=== PATIENT | female | born 1950 | race Caucasian/White ===

== ENCOUNTER 2016-11-01 13:21 | Inpatient (IN) ==
[2016-11-01 14:08] LABS: Basophils # (Auto) 0.1 K/mcL (0.0-0.3); Basophils % (Auto) 0.7 % (0.0-2.0); Eosinophils # (Auto) 0.2 K/mcL (0.0-0.7); Eosinophils % (Auto) 1.5 % (0.0-7.0); Granulocytes % (Auto) 77.5 % (38.0-78.0); Lymphocytes # (Auto) 2.1 K/mcL (1.5-4.8); Mean Cell Volume 92.8 fL (80.0-100.0); Mean Corpuscular HGB Conc 32.9 g/dL (31.0-36.0); Mean Corpuscular Hemoglobin 30.6 pg (26.0-34.0); Monocytes # (Auto) 1.2 K/mcL (0.1-0.9); Monocytes % (Auto) 7.3 % (1.0-12.0); Platelet Count 371 K/mcL (140-440); RBC 4.07 M/mcL (4.00-5.20); Red Cell Distribution Width 13.4 % (11.5-14.5)
[2016-11-01 14:22] LABS: Appearance,Urine CLEAR; Bilirubin,Urine NEG (NEG); Color,Urine YELLOW; Glucose,Urine (UA) NEGATIVE (NEG); Leukocyte Esterase,Urine NEG /uL (NEG); Nitrate,Urine NEG (NEG); Protein,Urine NEG (NEG); Urine Blood NEG mg/dL (<0.03); Urobilinogen,Urine NEG (NEG)
[2016-11-01] MEDS ORDERED: HYDROmorphone 2 MG/ML SYRINGE IV PRN ×2 (16:20→18:17)
[2016-11-01 17:23] LABS: ALT/SGPT 12 U/l (0-40); Albumin/Globulin Ratio 1.3 (1.0-2.3); Alkaline Phosphatase 87 U/L (39-117); Blood Urea Nitrogen 14 mg/dl (8-23)
[2016-11-01] MEDS ORDERED: DEXAMETHASONE 10 MG/ML VIAL IV ONE (17:40)
[2016-11-01] MEDS ORDERED: LIDOCAINE HCL/PF 100 MG/5 ML SYRINGE IV ONE (17:40)
[2016-11-01] MEDS ORDERED: fentaNYL 100 MCG/2 ML VIAL IV ONE (17:40)
[2016-11-01] MEDS ORDERED: PROPOFOL 200 MG/20 ML VIAL IV ONE (17:40)
[2016-11-01] MEDS ORDERED: MIDAZOLAM 5 MG/5 ML VIAL IV ONE (17:40)
[2016-11-01] MEDS ORDERED: ONDANSETRON 4 MG/2 ML VIAL IV ONE (17:40)
[2016-11-01] MEDS ORDERED: METOPROLOL TARTRATE 5 MG/5 ML VIAL IV PRN (18:17)
[2016-11-01] MEDS ORDERED: fentaNYL 100 MCG/2 ML VIAL IV PRN (18:17)
[2016-11-01] MEDS ORDERED: FLUMAZENIL 0.1 MG/ML ML IV PRN (18:17)
[2016-11-01] MEDS ORDERED: ePHEDrine 50 MG/ML AMPUL IV PRN (18:17)
[2016-11-01] MEDS ORDERED: METHOCARBAMOL 1,000 MG/10 ML VIAL IV PRN (18:17)
[2016-11-01] MEDS ORDERED: NALOXONE HCL 0.4 MG/ML VIAL IV PRN (18:17)
[2016-11-01] MEDS ORDERED: ATROPINE SULFATE 0.4 MG/ML VIAL IV PRN (18:17)
[2016-11-01] MEDS ORDERED: BENZOCAINE/MENTHOL 1 LOZENGE PO PRN ×2 (18:17→19:00)
[2016-11-01] MEDS ORDERED: MEPERIDINE 25 MG/ML SYRINGE IV PRN (18:17)
[2016-11-01] MEDS ORDERED: diphenhydrAMINE 50 MG/ML VIAL IV PRN (18:17)
[2016-11-01] MEDS ORDERED: ONDANSETRON 4 MG/2 ML VIAL IV PRN ×2 (18:17→19:00)
[2016-11-01] MEDS ORDERED: IPRATROPIUM/ALBUTEROL 3 ML AMPUL.NEB NEB PRN (18:17)
[2016-11-01] MEDS ORDERED: LACTATED RINGERS 1,000 ML IV SCH (18:30)
[2016-11-01] MEDS ORDERED: HYDROCODONE/APAP 7.5/325MG TABLET PO PRN (19:00)
[2016-11-01] MEDS ORDERED: LIDOCAINE 1% 20 ML, BUPIVACAINE 0.5% 20 ML SQ ONE (19:09)
--- NOTE | 2016-11-01 19:09 | Brief Operative Note ---
Date of procedure: 11/01/16 Pre-op diagnosis: Right bergman thumb abcess and thumb suppurative flexor tenosynovitis Post-op diagnosis: same Procedure: 1. Debridement and irrigation of right thumb bergman abcess 2. Debridement and irrigation of a right septic thumb, hand and suppurative flexor tenosynovitis Grafts/Implants: No Anesthesia: GLMA Findings: See above Complications: none Surgeon: Carl Resendez Product Safety Tester: Breana Angulo Estimated blood loss (cc): 5 Tourniquet Time (Minutes): 35 Specimens Removed/Pathology: other (Aerobic/Anaerobic/Fungal cultures of right thumb bergman abcess and flexor sheath) Condition: stable Disposition: PACU
[2016-11-01] MEDS ORDERED: VANCOMYCIN PER PHARMACY IV ONE (19:47)
[2016-11-01] MEDS ORDERED: cefTRIAXone 2 GM VIAL ONE (20:12)
[2016-11-01] MEDS: HYDROmorphone 2 MG/ML SYRINGE IV PRN (20:23)
[2016-11-01] MEDS: cefTRIAXone 2 GM in DEXTROSE 5% IN WATER 50 ML IV SCH ×2 (20:24)
[2016-11-01] MEDS ORDERED: METHOCARBAMOL 500 MG TABLET PO PRN (21:09)
[2016-11-01] MEDS: ATORVASTATIN 20 MG TABLET PO SCH (21:45)
[2016-11-01] MEDS: ZOLPIDEM 5 MG TABLET PO SCH (21:45)
[2016-11-01] MEDS: AMITRIPTYLINE 25 MG TABLET PO SCH (21:45)
[2016-11-01] MEDS: GABAPENTIN 300 MG CAPSULE PO SCH (21:45)
[2016-11-01] MEDS: 0.9 % SODIUM CHLORIDE 10 ML SYRINGE IV SCH (22:30)
[2016-11-01] MEDS ORDERED: VANCOMYCIN 500 MG VIAL ONE (23:55)
[2016-11-02] MEDS: VANCOMYCIN 1,000 MG in 0.9 % SODIUM CHLORIDE 250 ML IV SCH ×3 (00:10→21:52)
[2016-11-02 05:34] LABS: Mean Corpuscular Hemoglobin 30.7 pg (26.0-34.0); Platelet Count 309 K/mcL (140-440); RBC 3.88 M/mcL (4.00-5.20); Red Cell Distribution Width 13.5 % (11.5-14.5)
[2016-11-02 06:27] LABS: ALT/SGPT 13 U/l (0-40); Albumin 3.7 gm/dL (3.2-5.2); Albumin/Globulin Ratio 1.2 (1.0-2.3); Alkaline Phosphatase 85 U/L (39-117); Bilirubin,Direct < 0.2 mg/dL (0.0-0.3); Blood Urea Nitrogen 14 mg/dl (8-23); C-Reactive Protein 13.8 mg/dl (0.0-0.8); Gamma Glutamyl Transpeptidase 25 U/L (5-36); Magnesium 2.3 mg/dL (1.6-2.5); Uric Acid 3.7 mg/dL (2.5-8.0)
[2016-11-02 07:18] LABS: Lymphocytes % 7 % (15-49); Monocytes % (Manual) 4 % (1-9); Platelet Estimate NORMAL (NORMAL); RBC Morphology NORMAL (NORMAL); Segmented Neutrophils % 89 % (38-78)
[2016-11-02] MEDS: metFORMIN 500 MG TAB.XL.24H PO SCH (07:21)
[2016-11-02] MEDS: LEVOTHYROXINE 125 MCG TABLET PO SCH (07:22)
[2016-11-02] MEDS: 0.9 % SODIUM CHLORIDE 10 ML SYRINGE IV SCH ×3 (07:22→21:54)
--- NOTE | 2016-11-02 07:44 | Operative Note ---
DATE OF OPERATION: 11/01/2016 PREOPERATIVE DIAGNOSES: 1. Right thumb and hand palmar abscess. 2. Right thumb suppurative flexor tenosynovitis. POSTOPERATIVE DIAGNOSES: 1. Right thumb and hand palmar abscess. 2. Right thumb suppurative flexor tenosynovitis. PROCEDURE: 1. Debridement and irrigation of a right hand and thumb palmar abscess and septic tissues. 2. Debridement and irrigation of a right thumb with flexor tendon sheath. SURGEON: Carl Resendez MD. MOTOR VEHICLE DISPATCHER: Breana Angulo RN ESTIMATED BLOOD LOSS: 5 mL DRAINS: Included 1/4-inch [place] drain placed deep to the flexor sheath. COMPLICATIONS: None. FINAL SPONGE COUNT: Correct. TOTAL TOURNIQUET TIME: 35 minutes. SPECIMENS: Aerobic, anaerobic, fungal cultures of the right thumb palmar abscess and flexor tendon sheath. INDICATION: The patient is a 66-year-old, [id number], white female who about 10 days ago underwent a right thumb A1 aime release with subsequent increasing pain, swelling, loss of motion and function with pain radiating up her arm and with some low-grade temperatures. Her physical examination demonstrates a 0.5 cm transverse incision at the base of the palmar thumb at the metacarpophalangeal joint flexion crease. The sutured had been removed. There was erythema, induration significant tenderness to palpation and extended tenderness over the dorsum of the hand and down to the thenar musculature to the wrist with significant tenderness with attempted flexion and extension either passively and actively of the thumb. She had laboratory studies with a white cell count of 59,000, and an ESR of 45. The patient and family verbalized that they understood the proposed procedure with the associated risks and benefits and consented. PROCEDURE: The patient was taken to the operating room suite, placed supine on the operating table. General anesthesia was attained with laryngeal mask. After adequate anesthesia verified, a tourniquet was placed on the proximal aspect of her right arm and the right upper extremity was then sterilely prepped and draped in the usual fashion. The incision site was identified. This was then opened with the curved tenotomies with gross purulence expressed from the palmar abscess. Aerobic and anaerobic cultures, aerobic, and fungal cultures were taken at this time. Next, this was then irrigated slightly down to the flexor sheath. There was seen and purulence joint proximally in the flexor sheath and deep dorsally to the dorsum of the hand through the palmar space. Next, the flexor tendon sheath was drained and aerobic, anaerobic and fungal cultures were taken of the flexor tendon sheath as well. The incision site was then extended proximally and distally in a Jimy fashion about 200 cm each. After this demonstrated to be in good position, the right upper extremity was exsanguinated and tourniquet was inflated to 280 mmHg. The incision was then extended proximally and distally in a Jimy fashion. Sharp wrist and in the skin and subcutaneous tissues. Subcutaneous tissues were bluntly divided. Full-thickness flaps were developed in a radial ulnar direction. The entire flexor sheath was identified. There was necrotic and/or purulent material extending down palmarly and into the dorsal space through the palmar space. Next, copious irrigation was taken through the wound with a liter of sterile saline solution, repeat debridement was taken through the flexor sheath. The neurovascular bundles were identified and meticulously dissected free of the soft tissues and protected removing all necrotic tissue. All necrotic tissue was removed from the more palmar and proximal flexor sheath as well as distally. Blunt dissection taken down. Any spaces were opened and debrided. The palmar space was then opened and dorsum of the hand was debrided as well. After this was completed, another irrigation of a liter of sterile saline solution, repeat debridement, another liter of sterile saline solution and a final debridement removing all necrotic and/or foreign material and any purulence noted. The tendon was intact. There was no evidence of purulence within the flexor sheath or the palmar aspect or dorsal aspect of the hand. After final irrigation, the incisions edges were trimmed back about 2 mm and the skin was then closed with a 4-0 nylon in interrupted sutures and 1/4-inch [place] drains placed deep to the flexor sheath. The tourniquet was released. The thumb was seen to pink up very nicely with good drainage from the drain site. A bulky thumb spica dressing was applied. A thumb spica splint was applied. The patient was awakened and [facility] and to recovery room in a stable condition. The patient tolerated the procedure well. The estimated blood loss was 5 mL. Drains included 1/4-inch [place] drain placed deep to the flexor sheath. Complications were none. Final sponge count was correct. Specimens included aerobic, anaerobic and fungal cultures at the palmar abscess and the flexor sheath. Total tourniquet time of 35 minutes. SRB:yan Job ID: [id number] Doc ID: [id number] Carl Resendez MD
[2016-11-02] MEDS ORDERED: NAPROXEN 250 MG TABLET PO PRN (08:00)
[2016-11-02] MEDS: cefTRIAXone 2 GM in DEXTROSE 5% IN WATER 50 ML IV SCH (09:17)
[2016-11-02] MEDS: GABAPENTIN 300 MG CAPSULE PO SCH ×2 (09:50→21:01)
[2016-11-02] MEDS ORDERED: sitaGLIPtin 100 MG TABLET PO ONE (10:24)
[2016-11-02] MEDS ORDERED: DEXTROSE 50% 50 ML VIAL IV PRN (10:25)
--- NOTE | 2016-11-02 10:32 | Internal Med Progress Note ---
Medical - PN: Subj Patient information: Note initiated : 11/02/16 at 10:27 am Service Date, if different from initiated Date: [] Patient: Jada Ramirez 66 y/o F admitted on 11/01/16 for Debridement and Irrigation of Right Thumb Palmar . Chief Complaint: [] Interval history: 11/01- patient admitted by orthopedics with right hand/thumb abscess/ tenosynovitis. Postop debridement. Hospitalist consult for management of antibiotics and medical issues. Patient started onvancomycin/Rocephin. 11/02-patient doing well. Continue antibiotic coverage. Gram stain cultures negative so far. Pre-existing medical condition stable on home meds. No overnight fever chills or concerns per staff - Constitutional Vitals: Vital Signs Temp Pulse Resp BP Pulse Ox 97.4 F L 56 L 12 98/61 96 11/02/16 07:39 11/02/16 08:00 11/02/16 07:39 11/02/16 07:39 11/02/16 08:00 Period Temp Pulse Resp BP Sys/Wang Pulse Ox Last 24 Hr 97.4 F-99.7 F 56-95 12-18 98-154/61-89 90-100 Intake and Output 11/01/16 11/02/16 11/02/16 21:59 05:59 13:59 Intake Total 1600 / 1600 350 / 350 500 / 500 Output Total 5 / 5 650 / 650 Balance 1595 / 1595 -300 / -300 500 / 500 Weight 201 lb Intake & Output: Intake & Output 11/01/16 11/02/16 11/02/16 21:59 05:59 13:59 Intake Total 1600 / 1600 350 / 350 500 / 500 Output Total 5 / 5 650 / 650 Balance 1595 / 1595 -300 / -300 500 / 500 Weight 201 lb Intake: IV 1600 / 1600 Oral 350 / 350 500 / 500 Output: Void Amount 650 / 650 Estimated Blood Loss 5 / 5 Other: Meal Breakfast Percent of Meal Consumed 100% Feeding Ability Independent # Voids 1 General appearance: cooperative, no acute distress Exam: alert oriented onlabored breathing Right hand/armCovered in dressing no anxiety Medical - PN: Obj Da - Labs CBC & Chem 7: 11/02/16 04:00 11/02/16 04:00 Labs: Abnormal Lab Results 11/02/16 11/02/16 11/01/16 04:00 04:00 16:05 WBC 14.4 H RBC 3.88 L Hgb 11.9 L Lymph % (Auto) Gran # [place] # Seg Neutrophils % 89 H Lymphocytes % 7 L ESR Potassium 5.2 H Glucose 159 H C-Reactive Protein 13.8 H 10.6 H Urine Ketones 11/01/16 11/01/16 11/01/16 16:05 16:05 13:45 WBC 15.9 H RBC Hgb Lymph % (Auto) 13.0 L Gran # 12.3 H [place] # 1.2 H Seg Neutrophils % Lymphocytes % ESR 45 H Potassium Glucose 109 H C-Reactive Protein Urine Ketones 11/01/16 13:40 WBC RBC Hgb Lymph % (Auto) Gran # [place] # Seg Neutrophils % Lymphocytes % ESR Potassium Glucose C-Reactive Protein Urine Ketones 5/tr A Meds: Medications Acetaminophen/Hydrocodone Bitart ([place] 7.5/325mg) 0 tab PO Q4HP PRN PRN Reason: Pain Last Admin: 11/01/16 20:28 Dose: 1 tab Amitriptyline HCl (Elavil) 50 mg PO HS [facility] Last Admin: 11/01/16 21:45 Dose: 50 mg Atorvastatin Calcium (Lipitor) 40 mg PO HS [facility] Last Admin: 11/01/16 21:45 Dose: 40 mg Dextrose (Dextrose 50%) 0 ml IV UD PRN PRN Reason: Hypoglycemia Diagnostic Test (Pha) (Accu-Chek) 1 each FS ACHS TERE Gabapentin (Neurontin) 300 mg PO HS [facility] Last Admin: 11/01/16 21:45 Dose: 300 mg Gabapentin (Neurontin) 600 mg PO QAM [facility] Last Admin: 11/02/16 09:50 Dose: 600 mg Hydromorphone HCl (Dilaudid) 0 mg IV Q2HP PRN PRN Reason: Pain Last Admin: 11/01/16 20:23 Dose: 1 mg Ceftriaxone Sodium 2 gm/ (Dextrose) 50 mls @ 100 mls/hr IV Q24H [facility] Last Admin: 11/02/16 09:17 Dose: 100 mls/hr Vancomycin HCl 1,000 mg/ (Sodium Chloride) 250 mls @ 250 mls/hr IV Q12H [facility] Last Admin: 11/02/16 09:51 Dose: 250 mls/hr Insulin Human Lispro (Humalog) 0 unit SQ ACHS [facility] PRN Reason: Protocol Levothyroxine Sodium (Synthroid) 125 mcg PO QAMAC [facility] Last Admin: 11/02/16 07:22 Dose: 125 mcg Metformin HCl (Glucophage) 500 mg PO QAMCC [facility] Last Admin: 11/02/16 07:21 Dose: 500 mg Methocarbamol (Robaxin) 500 mg PO BIDP PRN PRN Reason: Pain Naproxen (Naprosyn) 500 mg PO BIDP PRN PRN Reason: Pain Ondansetron HCl (Zofran) 4 mg IV Q4HP PRN PRN Reason: Nausea And Vomiting Sitagliptin Phosphate (Januvia) 100 mg PO DAILY [facility] Sodium Chloride (Saline Flush) 10 ml IV Q8 [facility] Last Admin: 11/02/16 07:22 Dose: 10 ml Throat Lozenges (Cepacol) 1 lozenge PO PRN PRN PRN Reason: Sore Throat Zolpidem Tartrate (Ambien) 5 mg PO HS [facility] Last Admin: 11/01/16 21:45 Dose: 5 mg Medical - PN: A/P - Time Spent With Patient Total time spent is greater than 50% in coordination of care (as documented) at patient's floor/unit and/or counseling patient: 15 - 24 minutes (1) Abscess of right hand excluding fingers and thumb Status: Acute Assessment and plan: * right hand abscess/tenosynovitis, status post operative debridement. On broad antibiotic coverage. Await cultures.. Postoperative care per orthopedics Hospitalist consult * cellulitis/tenosynovitis right hand-continue vancomycin and Rocephin for empiric MRSA/Streptococcus/ gram-negative coverage. * DM type continue prandial insulin/sitagliptin * Neuropathy on gabapentin/amitriptyline * Hypothyroidism thyroxine * hyperlipidemia statin * DVT prophylaxis. Start Lovenox Plan * postoperative management as per Dr. Santana orthopedics * Antibiotic coverage. De-escalate based on sensitivities * Pre-existing medical condition management as above Current Visit: Yes
[2016-11-02] MEDS ORDERED: LORazepam 2 MG/ML VIAL IV ONE (10:45)
[2016-11-02] MEDS ORDERED: LORazepam 2 MG/ML VIAL ONE (10:49)
[2016-11-02] MEDS: INSULIN LISPRO 1 UNIT/0.01 ML UNIT SQ SCH ×3 (10:57→21:53)
--- NOTE | 2016-11-02 11:30 | Consultation ---
DATE OF CONSULTATION: 11/02/2016 REQUESTING PHYSICIAN: Carl Resendez MD. REASON FOR CONSULTATION: Management of antibiotics in a patient with right thumb and hand palmar abscess/tenosynovitis. HISTORY OF CHIEF COMPLAINT: The patient is a 66-year-old who was evaluated by Dr. Resendez after she had noticed significant swelling, along with pain and discharge involving the right thumb and hand. She recently underwent outpatient trigger finger release at [facility]. However, the healing process was complicated with increasing redness and discharge along with fever. The patient underwent debridement and irrigation of right hand and thumb palmar abscess and septic tissues performed by Dr. Resendez. Postoperatively, Hospitalist Service was consulted for management of antibiotics. Cultures are pending. At the time of examination, the patient is postoperative. She is alert and oriented. She denies any active distress. She denies other major prior medical issues. No history of coronary artery disease. She carries a history of diabetes, takes metformin. She also has underlying neuropathy which has been stable on gabapentin, along with amitriptyline. She has some insomnia for which she normally takes zolpidem. Other than that, the patient has been fairly healthy. She currently works for the [employer]. REVIEW OF SYSTEMS: Ten-point review of system was performed. The patient denies nausea, vomiting, diarrhea, dysuria, headache, photophobia, chest pain, shortness of breath. She further denies abdominal pain, rash, joint swelling, lymphedema. She also denies glandular swelling or weight loss. PAST MEDICAL HISTORY: 1. History of diabetes mellitus type 2. 2. Degenerative joint disease. 3. Neuropathy. 4. Hyperlipidemia. 5. Hypothyroidism. 6. History of sleep disorder. CURRENT MEDICATIONS: 1. Amitriptyline 50 mg at bedtime, 2. Zolpidem 5 mg at bedtime. 3. Methocarbamol 500 mg b.i.d. 4. Levothyroxine 125 mcg. 5. Atorvastatin 40 mg. 6. Metformin 500 mg. 7. Gabapentin 300 mg at bedtime, 600 mg every morning. 8. Naproxen 500 mg t.i.d. p.r.n. SOCIAL HISTORY: [place] She lives alone, fairly independent. No history of smoking or alcoholism. She sees primary care physician, MICHAEL Sarah. PHYSICAL EXAMINATION: GENERAL: The patient is alert and oriented and denies any active distress. BMI 28.8, height 5 feet 10 inches. VITAL SIGNS: Blood pressure 138/89, respiratory rate 12, temperature 98.3, pulse 86, sats 92% on room air. HEENT: Pupils symmetric. Oral cavity is dry. No ear or nose discharge. Head is normocephalic and atraumatic. NECK: No lymphadenopathy. CHEST: Nonlabored breathing. ABDOMEN: Soft. EXTREMITIES: Right upper extremity covered in sterile dressing. Lower extremities no cyanosis or clubbing. No joint swelling. SKIN: No suspicious lesions. PSYCHIATRIC: Alert and cooperative. NEURO: Nonfocal, moving all four extremities. Normal higher function. LABS AND IMAGING: White count 15.9, hemoglobin 13.8, platelets 371. ESR 45. Sodium 135, potassium 4.2, creatinine 0.7, BUN 14. LFTs unremarkable. CRP 10.6. UA unremarkable. EKG: Q3/T3 pattern suggestive of right ventricular strain. Borderline ST changes V3, V4, V5. Sinus rhythm. ASSESSMENT AND PLAN: A 66-year-old admitted by Orthopedics for right hand abscess/septic arthritis/tenosynovitis. 1. Right hand/thumb abscess/tenosynovitis/septic arthritis. Status post irrigation and debridement by Orthopedics. Hospitalist consult. 2. Management of antibiotics. Start empiric Rocephin/vancomycin and deescalate based on culture sensitivities. 3. History of diabetes mellitus type 2. Continue prandial insulin/sitagliptin. 4. History of hyperlipidemia. Continue statin. 5. Neuropathy. Continue gabapentin/amitriptyline 6. Hypothyroidism. Continue levothyroxine. PLAN: 1. Postoperative management as per Orthopedics. 2. Medical issue management as above. We will continue to follow along. Thank you for the consultation. AA:flora Job ID: [id number] Doc ID: [id number] Elan YOO
[2016-11-02] MEDS ORDERED: 0.9 % SODIUM CHLORIDE 10 ML SYRINGE IV PRN (16:25)
--- NOTE | 2016-11-02 16:46 | Orthopedic Progress Note ---
Subjective Patient information: Note initiated : 11/02/16 at 4:44 pm Service Date, if different from initiated Date: [] Patient: Jada Ramirez 66 y/o F admitted on 11/01/16 for Debridement and Irrigation of Right Thumb Palmar . Chief Complaint: [] Principal diagnosis: Right thumb abcess, right thumb suppurative flexor tenosynovitis Interval history: Patient doing better, decreased pain, no fevers or chills, taking po well Objective Vital signs: Vital Signs Temp Pulse Pulse Resp BP Pulse Ox 11/02/16 16:00 97.5 F L 87 12 101/68 98 11/02/16 12:00 97.4 F L 60 12 100/63 95 11/02/16 08:00 56 L 96 11/02/16 07:39 97.4 F L 57 L 12 98/61 100 11/02/16 07:26 14 11/02/16 04:00 97.4 F L 70 12 108/69 96 11/02/16 00:00 98.3 F 86 12 103/63 92 11/01/16 21:17 87 138/89 93 11/01/16 21:03 87 134/84 97 11/01/16 20:48 83 141/78 96 11/01/16 20:33 84 133/73 90 11/01/16 20:18 98.0 F 76 12 145/83 94 11/01/16 19:15 98.6 F 92 H 14 134/73 97 11/01/16 19:10 91 H 16 138/79 95 11/01/16 19:05 92 H 12 138/78 97 11/01/16 19:00 90 12 135/79 98 11/01/16 18:55 95 H 18 135/75 99 11/01/16 18:50 99.7 F H 86 16 154/87 97 Intake and Output 11/02/16 11/02/16 11/02/16 05:59 13:59 21:59 Intake Total 350 / 350 700 / 700 Output Total 650 / 650 Balance -300 / -300 700 / 700 Intake: Oral 350 / 350 700 / 700 Output: Void Amount 650 / 650 Other: Meal Lunch Percent of Meal Consumed 100% Feeding Ability Independent # Voids 1 Weight 201 lb Patient Weight 11/03/16 05:59 Weight 201 lb Intake & Output: Intake & Output 11/02/16 11/02/16 11/02/16 05:59 13:59 21:59 Intake Total 350 / 350 700 / 700 Output Total 650 / 650 Balance -300 / -300 700 / 700 Weight 201 lb Intake: Oral 350 / 350 700 / 700 Output: Void Amount 650 / 650 Other: Meal Lunch Percent of Meal Consumed 100% Feeding Ability Independent # Voids 1 Dressing: Yes clean, Yes dry, Yes intact, Yes splint in place Weight bearing status: full Neurological exam IM: Yes alert, Yes oriented X3, Yes neurovascular intact - Labs CBC & BMP: 11/02/16 04:00 11/02/16 04:00 Labs: 11/02/16 11/01/16 04:00 13:45 Hgb 11.9 L 12.4 Hct 36.1 37.8 Assessment and Plan (1) Tenosynovitis Status: Acute Priority: Medium Comment: A: S/P debridement and irrigation of right septic hand with debridement and irrigation of right thumb suppurative flexor tenosynovitis P: 1. Continue IV antibiotics as per Hospitalist 2. Up as tolerated 3. Dressing change and drain D/C 11/04/16
[2016-11-02] MEDS ORDERED: LORazepam 2 MG/ML VIAL IV PRN (18:07)
[2016-11-02] MEDS: ATORVASTATIN 20 MG TABLET PO SCH (21:01)
[2016-11-02] MEDS: AMITRIPTYLINE 25 MG TABLET PO SCH (21:02)
[2016-11-02] MEDS: ZOLPIDEM 5 MG TABLET PO SCH (21:02)
[2016-11-02] MEDS: HYDROmorphone 2 MG/ML SYRINGE IV PRN (21:52)
[2016-11-03 05:18] LABS: Mean Cell Volume 93.6 fL (80.0-100.0); Mean Corpuscular HGB Conc 34.2 g/dL (31.0-36.0); Platelet Count 316 K/mcL (140-440); RBC 3.41 M/mcL (4.00-5.20); Red Cell Distribution Width 13.5 % (11.5-14.5)
[2016-11-03 05:42] LABS: ALT/SGPT 20 U/l (0-40); Albumin 3.6 gm/dL (3.2-5.2); Albumin/Globulin Ratio 1.3 (1.0-2.3); Alkaline Phosphatase 83 U/L (39-117); Bilirubin,Direct < 0.2 mg/dL (0.0-0.3); Blood Urea Nitrogen 17 mg/dl (8-23); Gamma Glutamyl Transpeptidase 33 U/L (5-36); Magnesium 2.2 mg/dL (1.6-2.5); Uric Acid 4.2 mg/dL (2.5-8.0)
[2016-11-03] MEDS: 0.9 % SODIUM CHLORIDE 10 ML SYRINGE IV SCH ×3 (06:43→22:00)
[2016-11-03] MEDS: INSULIN LISPRO 1 UNIT/0.01 ML UNIT SQ SCH ×4 (06:43→21:04)
[2016-11-03] MEDS: LEVOTHYROXINE 125 MCG TABLET PO SCH (06:46)
[2016-11-03] MEDS: metFORMIN 500 MG TAB.XL.24H PO SCH (06:46)
[2016-11-03 06:54] LABS: Band Neutrophils % 1 % (0-10); Lymphocytes % 20 % (15-49); Monocytes % (Manual) 5 % (1-9); Platelet Estimate NORMAL (NORMAL); RBC Morphology NORMAL (NORMAL); Segmented Neutrophils % 74 % (38-78)
[2016-11-03] MEDS: ENOXAPARIN 40 MG/0.4 ML SYRINGE SQ SCH (08:38)
[2016-11-03] MEDS: GABAPENTIN 300 MG CAPSULE PO SCH ×2 (08:38→20:59)
[2016-11-03] MEDS: sitaGLIPtin 100 MG TABLET PO SCH (08:38)
[2016-11-03] MEDS: cefTRIAXone 2 GM in DEXTROSE 5% IN WATER 50 ML IV SCH (09:37)
[2016-11-03] MEDS: oxyCODONE/APAP 5/325MG TABLET PO PRN ×3 (09:48→19:33)
--- NOTE | 2016-11-03 10:39 | Internal Med Progress Note ---
Medical - PN: Subj Patient information: Note initiated : 11/03/16 at 10:35 am Service Date, if different from initiated Date: [] Patient: Jada Ramirez 66 y/o F admitted on 11/01/16 for Debridement and Irrigation of Right Thumb Palmar . Chief Complaint: [] Interval history: 11/01- patient admitted by orthopedics with right hand/thumb abscess/ tenosynovitis. Postop debridement. Hospitalist consult for management of antibiotics and medical issues. Patient started onvancomycin/Rocephin. 11/02-patient doing well. Continue antibiotic coverage. Gram stain cultures negative so far. Pre-existing medical condition stable on home meds. No overnight fever chills or concerns per staff 11/03- gram-positive cocci in chains along withgram-positive coccobacillary on Gram stain. Continue vancomycin and Rocephin. Await final sensitivities. Target 4 weeks IV followed by additional 2 weeks oral antibiotics. PICC line placement today for outpatient IV antibiotics. postoperative management per Dr. Morales orthopedics - Constitutional Vitals: Vital Signs Temp Pulse Resp BP Pulse Ox 98.3 F 63 18 103/69 95 11/03/16 06:41 11/03/16 06:41 11/03/16 06:48 11/03/16 06:41 11/03/16 06:48 Period Temp Pulse Resp BP Sys/Wang Pulse Ox Last 24 Hr 97.4 F-99.4 F 60-87 12-22 100-124/63-72 93-98 Intake and Output 11/02/16 11/03/16 11/03/16 21:59 05:59 13:59 Intake Total 750 / 750 900 / 900 600 / 600 Output Total 50 / 50 900 / 900 Balance 700 / 700 0 / 0 600 / 600 Weight 201 lb 8 oz Intake & Output: Intake & Output 11/02/16 11/03/16 11/03/16 21:59 05:59 13:59 Intake Total 750 / 750 900 / 900 600 / 600 Output Total 50 / 50 900 / 900 Balance 700 / 700 0 / 0 600 / 600 Weight 201 lb 8 oz Intake: IV 250 / 250 Vancomycin 1,000 mg In 250 / 250 Sodium Chloride 0.9% 250 ml @ 250 mls/hr IV Q12H [facility] Rx#:[id number] Oral 750 / 750 650 / 650 600 / 600 Output: Void Amount 50 / 50 900 / 900 Other: Meal Dinner Breakfast Percent of Meal Consumed 75% 100% Feeding Ability Independent # Voids 1 General appearance: no acute distress Exam: anxious Alert oriented nonlabored breathing No lymphedema or pallor Medical - PN: Obj Da - Labs CBC & Chem 7: 11/03/16 03:50 11/03/16 03:50 Labs: Abnormal Lab Results 11/03/16 11/03/16 11/02/16 03:50 03:50 04:00 WBC 12.3 H RBC 3.41 L Hgb 10.9 L Hct 31.9 L Lymph % (Auto) Gran # [place] # Seg Neutrophils % Lymphocytes % ESR Potassium 5.2 H Glucose 126 H 159 H C-Reactive Protein 13.8 H Urine Ketones 11/02/16 11/01/16 11/01/16 04:00 16:05 16:05 WBC 14.4 H RBC 3.88 L Hgb 11.9 L Hct Lymph % (Auto) Gran # [place] # Seg Neutrophils % 89 H Lymphocytes % 7 L ESR Potassium Glucose 109 H C-Reactive Protein 10.6 H Urine Ketones 11/01/16 11/01/16 11/01/16 16:05 13:45 13:40 WBC 15.9 H RBC Hgb Hct Lymph % (Auto) 13.0 L Gran # 12.3 H [place] # 1.2 H Seg Neutrophils % Lymphocytes % ESR 45 H Potassium Glucose C-Reactive Protein Urine Ketones 5/tr A Meds: Medications Amitriptyline HCl (Elavil) 50 mg PO HS [facility] Last Admin: 11/02/16 21:02 Dose: 50 mg Atorvastatin Calcium (Lipitor) 40 mg PO HS [facility] Last Admin: 11/02/16 21:01 Dose: 40 mg Dextrose (Dextrose 50%) 0 ml IV UD PRN PRN Reason: Hypoglycemia Diagnostic Test (Pha) (Accu-Chek) 1 each FS ACHS [facility] Last Admin: 11/03/16 06:43 Dose: 1 each Enoxaparin Sodium (Lovenox) 40 mg SQ DAILY [facility] Last Admin: 11/03/16 08:38 Dose: 40 mg Gabapentin (Neurontin) 300 mg PO HS [facility] Last Admin: 11/02/16 21:01 Dose: 300 mg Gabapentin (Neurontin) 600 mg PO QAM [facility] Last Admin: 11/03/16 08:38 Dose: 600 mg Heparin Sodium (Porcine) (Heparin Flush) 2 ml IV Q12 [facility] Last Admin: 11/03/16 08:39 Dose: Not Given Hydromorphone HCl (Dilaudid) 0 mg IV Q2HP PRN PRN Reason: Pain Last Admin: 11/02/16 21:52 Dose: 1 mg Ceftriaxone Sodium 2 gm/ (Dextrose) 50 mls @ 100 mls/hr IV Q24H [facility] Last Admin: 11/03/16 09:37 Dose: 100 mls/hr Vancomycin HCl 1,000 mg/ (Sodium Chloride) 250 mls @ 250 mls/hr IV Q12H [facility] Last Infusion: 11/02/16 22:53 Dose: Infused Insulin Human Lispro (Humalog) 0 unit SQ ACHS [facility] PRN Reason: Protocol Last Admin: 11/03/16 06:43 Dose: Not Given [facility]othy[facility] Admin: 11/03/16 06:46 Dose: 125 mcg Lorazepam (Ativan) 0.5 mg IV Q6HP PRN PRN Reason: ANXIETY/SEDATION Last Admin: 11/03/16 10:00 Dose: 0.5 mg Metformin [facility]ophage) [facility] Last Admin: 11/03/16 06:46 Dose: 500 mg Methocarbamol (Robaxin) 500 mg PO BIDP PRN PRN Reason: Pain Naproxen (Naprosyn) 500 mg PO BIDP PRN PRN Reason: Pain Ondansetron HCl (Zofran) 4 mg IV Q4HP PRN PRN Reason: Nausea And Vomiting Oxycodone/Acetaminophen (Percocet 5-325 Mg) 1 - 2 tab PO Q4HP PRN PRN Reason: Pain Last Admin: 11/03/16 09:48 Dose: 2 tab Sitagliptin Phosphate (Januvia) 100 mg PO DAILY [facility] Last Admin: 11/03/16 08:38 Dose: 100 mg Sodium Chloride (Saline Flush) 10 ml IV Q8 [facility] Last Admin: 11/03/16 06:43 Dose: 10 ml Sodium Chloride (Saline Flush) 10 ml IV UD PRN PRN Reason: FLUSH Throat Lozenges (Cepacol) 1 lozenge PO PRN PRN PRN Reason: Sore Throat Zolpidem Tartrate (Ambien) 5 mg PO HS [facility] Last Admin: 11/02/16 21:02 Dose: 5 mg Medical - PN: A/P - Time Spent With Patient Total time spent is greater than 50% in coordination of care (as documented) at patient's floor/unit and/or counseling patient: 15 - 24 minutes (1) Abscess of right hand excluding fingers and thumb Status: Acute Assessment and plan: * Right hand abscess/tenosynovitis, status post operative debridement , Postoperative day 2. On broad antibiotic coverage for GPC/rach-positive coccobacilli. Await sensitivities Hospitalist consult * Cellulitis/suppurative flexor tenosynovitis right hand-continue vancomycin and Rocephin based on culture results. de-escalate once sensitivities available. * DM type continue prandial insulin/sitagliptin * anxiety disorder on as needed Benzodiazepines * Neuropathy on gabapentin/amitriptyline * Hypothyroidism -thyroxine * hyperlipidemia statin * DVT prophylaxis. Start Lovenox Plan * postoperative management as per Dr. Santana orthopedics * continue ABX For total of 6 [id number] IV 2 weeks oral * PICC line placement * Pre-existing medical condition management as above Current Visit: Yes
[2016-11-03] MEDS: VANCOMYCIN 1,000 MG in 0.9 % SODIUM CHLORIDE 250 ML IV SCH ×2 (10:59→22:00)
--- NOTE | 2016-11-03 12:24 | Orthopedic Progress Note ---
Subjective Patient information: Note initiated : 11/03/16 at 12:22 pm Service Date, if different from initiated Date: [] Patient: aJda Ramirez 66 y/o F admitted on 11/01/16 for Debridement and Irrigation of Right Thumb Palmar . Chief Complaint: [] Principal diagnosis: Right thumb abcess, right thumb suppurative flexor tenosynovitis Interval history: Patient doing well, decreased pain, no fevers or chills, taking po well. Does c /o some numbness at the thumb tip. Objective Vital signs: Vital Signs Temp Pulse Resp BP Pulse Ox 11/03/16 06:48 18 95 11/03/16 06:41 98.3 F 63 18 103/69 95 11/03/16 03:50 98.2 F 68 22 106/71 93 11/02/16 23:35 98.4 F 61 22 112/72 94 11/02/16 18:46 99.4 F 85 22 124/71 94 11/02/16 16:00 97.5 F L 87 12 101/68 98 Intake and Output 11/02/16 11/03/16 11/03/16 21:59 05:59 13:59 Intake Total 750 / 750 900 / 900 600 / 600 Output Total 50 / 50 900 / 900 Balance 700 / 700 0 / 0 600 / 600 Intake: IV 250 / 250 Vancomycin 1,000 mg In 250 / 250 Sodium Chloride 0.9% 250 ml @ 250 mls/hr IV Q12H [facility] Rx#:[id number] Oral 750 / 750 650 / 650 600 / 600 Output: Void Amount 50 / 50 900 / 900 Other: Meal Dinner Breakfast Percent of Meal Consumed 75% 100% Feeding Ability Independent # Voids 1 1 Weight 201 lb 8 oz Intake & Output: Intake & Output 11/02/16 11/03/16 11/03/16 21:59 05:59 13:59 Intake Total 750 / 750 900 / 900 600 / 600 Output Total 50 / 50 900 / 900 Balance 700 / 700 0 / 0 600 / 600 Weight 201 lb 8 oz Intake: IV 250 / 250 Vancomycin 1,000 mg In 250 / 250 Sodium Chloride 0.9% 250 ml @ 250 mls/hr IV Q12H [facility] Rx#:[id number] Oral 750 / 750 650 / 650 600 / 600 Output: Void Amount 50 / 50 900 / 900 Other: Meal Dinner Breakfast Percent of Meal Consumed 75% 100% Feeding Ability Independent # Voids 1 1 Dressing: Yes clean, Yes dry, Yes intact, Yes splint in place Weight bearing status: full Neurological exam IM: Yes alert, Yes oriented X3, Yes neurovascular intact - Labs CBC & BMP: 11/03/16 03:50 11/03/16 03:50 Labs: 11/03/16 11/02/16 11/01/16 03:50 04:00 13:45 Hgb 10.9 L 11.9 L 12.4 Hct 31.9 L 36.1 37.8 Assessment and Plan (1) Tenosynovitis Status: Acute Priority: Medium Comment: A: S/P debridement and irrigation of right septic hand with debridement and irrigation of right thumb suppurative flexor tenosynovitis P: 1. Continue IV antibiotics as per Hospitalist 2. Up as tolerated 3. Dressing change and drain D/C 11/04/16
[2016-11-03] MEDS: HYDROmorphone 2 MG/ML SYRINGE IV PRN (19:34)
[2016-11-03] MEDS ORDERED: diphenhydrAMINE 25 MG CAPSULE PO PRN (20:22)
[2016-11-03] MEDS: ATORVASTATIN 20 MG TABLET PO SCH (20:59)
[2016-11-03] MEDS: AMITRIPTYLINE 25 MG TABLET PO SCH (20:59)
[2016-11-03] MEDS: ZOLPIDEM 5 MG TABLET PO SCH (20:59)
[2016-11-04] MEDS: traMADol 50 MG TABLET PO PRN ×3 (02:07→17:45)
[2016-11-04] MEDS: 0.9 % SODIUM CHLORIDE 10 ML SYRINGE IV SCH ×2 (04:16→13:05)
[2016-11-04] MEDS: HYDROmorphone 2 MG/ML SYRINGE IV PRN ×3 (04:45→13:05)
[2016-11-04 05:32] LABS: Mean Cell Volume 92.2 fL (80.0-100.0); Mean Corpuscular HGB Conc 33.3 g/dL (31.0-36.0); Mean Corpuscular Hemoglobin 30.7 pg (26.0-34.0); Platelet Count 360 K/mcL (140-440); RBC 3.65 M/mcL (4.00-5.20); Red Cell Distribution Width 13.7 % (11.5-14.5)
[2016-11-04 05:50] LABS: C-Reactive Protein 2.9 mg/dl (0.0-0.8)
[2016-11-04 06:00] LABS: ALT/SGPT 26 U/l (0-40); Albumin 3.4 gm/dL (3.2-5.2); Albumin/Globulin Ratio 1.3 (1.0-2.3); Alkaline Phosphatase 82 U/L (39-117); Bilirubin,Direct < 0.2 mg/dL (0.0-0.3); Blood Urea Nitrogen 16 mg/dl (8-23); Gamma Glutamyl Transpeptidase 40 U/L (5-36); Uric Acid 4.9 mg/dL (2.5-8.0)
[2016-11-04] MEDS: INSULIN LISPRO 1 UNIT/0.01 ML UNIT SQ SCH ×3 (07:22→17:10)
[2016-11-04] MEDS: LEVOTHYROXINE 125 MCG TABLET PO SCH (07:30)
[2016-11-04 07:50] LABS: Eosinophils % (Manual) 3 % (0-7); Lymphocytes % 42 % (15-49); Monocytes % (Manual) 8 % (1-9); Platelet Estimate NORMAL (NORMAL); RBC Morphology NORMAL (NORMAL); Segmented Neutrophils % 47 % (38-78)
[2016-11-04] MEDS: metFORMIN 500 MG TAB.XL.24H PO SCH (09:27)
[2016-11-04] MEDS: cefTRIAXone 2 GM in DEXTROSE 5% IN WATER 50 ML IV SCH (09:27)
[2016-11-04] MEDS: sitaGLIPtin 100 MG TABLET PO SCH (09:27)
[2016-11-04] MEDS: ENOXAPARIN 40 MG/0.4 ML SYRINGE SQ SCH (09:28)
[2016-11-04] MEDS: GABAPENTIN 300 MG CAPSULE PO SCH (09:28)
[2016-11-04] MEDS: VANCOMYCIN 1,000 MG in 0.9 % SODIUM CHLORIDE 250 ML IV SCH (11:51)
--- NOTE | 2016-11-04 13:57 | Orthopedic Progress Note ---
Subjective Patient information: Note initiated : 11/04/16 at 1:54 pm Service Date, if different from initiated Date: [] Patient: Jada Ramirez 66 y/o F admitted on 11/01/16 for Debridement and Irrigation of Right Thumb Palmar . Chief Complaint: [] Principal diagnosis: Right thumb abcess, right thumb suppurative flexor tenosynovitis Interval history: Patient doing well, improved motion and less pain, still with some fuzziness at the end of the right thumb. No fevers or chills Objective Vital signs: Vital Signs Temp Pulse Resp BP Pulse Ox 11/04/16 12:00 97.3 F L 67 18 123/75 94 11/04/16 08:00 98.1 F 69 16 113/73 93 11/04/16 04:00 98.3 F 67 16 104/62 93 11/03/16 23:21 98.1 F 71 16 101/62 95 11/03/16 19:55 98.1 F 77 16 99/66 96 11/03/16 16:00 99.1 F 76 18 105/79 97 11/03/16 15:05 91 Intake and Output 11/03/16 11/04/16 11/04/16 21:59 05:59 13:59 Intake Total 610 / 610 500 / 500 930 / 930 Output Total 700 / 700 400 / 400 900 / 900 Balance -90 / -90 100 / 100 Intake: IV 250 / 250 300 / 300 50 / 50 Vancomycin 1,000 mg In 250 / 250 250 / 250 Sodium Chloride 0.9% 250 ml @ 250 mls/hr IV Q12H [facility] Rx#:[id number] Rocephin 2 gm In Dextrose 50 / 50 50 / 50 5% in Water 50 ml @ 100 mls/hr IV Q24H [facility] Rx#: [id number] Oral 360 / 360 200 / 200 880 / 880 Output: Void Amount 700 / 700 400 / 400 900 / 900 Other: Meal Lunch Percent of Meal Consumed 100% Feeding Ability Assist with Tray Set Up # Voids 1 1 Weight 202 lb Intake & Output: Intake & Output 11/03/16 11/04/16 11/04/16 21:59 05:59 13:59 Intake Total 610 / 610 500 / 500 930 / 930 Output Total 700 / 700 400 / 400 900 / 900 Balance -90 / -90 100 / 100 30 / 30 Weight 202 lb Intake: IV 250 / 250 300 / 300 50 / 50 Vancomycin 1,000 mg In 250 / 250 250 / 250 Sodium Chloride 0.9% 250 ml @ 250 mls/hr IV Q12H [facility] Rx#:[id number] Rocephin 2 gm In Dextrose 50 / 50 50 / 50 5% in Water 50 ml @ 100 mls/hr IV Q24H [facility] Rx#: [id number] Oral 360 / 360 200 / 200 880 / 880 Output: Void Amount 700 / 700 400 / 400 900 / 900 Other: Meal Lunch Percent of Meal Consumed 100% Feeding Ability Assist with Tray Set Up # Voids 1 1 Incision: Yes healing, Yes draining (minimal serous drainage) Incision clean and dry: Yes Dressing: Yes clean, Yes dry, Yes intact Weight bearing status: full Neurological exam IM: Yes alert, Yes oriented X3, Yes neurovascular intact - Labs CBC & BMP: 11/04/16 04:09 11/04/16 04:09 Labs: 11/04/16 11/03/16 11/02/16 04:09 03:50 04:00 Hgb 11.2 L 10.9 L 11.9 L Hct 33.7 L 31.9 L 36.1 11/01/16 13:45 Hgb 12.4 Hct 37.8 Assessment and Plan (1) Tenosynovitis Status: Acute Priority: Medium Comment: A: S/P debridement and irrigation of right septic hand with debridement and irrigation of right thumb suppurative flexor tenosynovitis P: 1. Continue IV antibiotics as per Hospitalist 2. Up as tolerated 3. Dressing change and drain D/C 11/04/16
--- NOTE | 2016-11-04 14:01 | Orthopedic Progress Note ---
Subjective Patient information: Note initiated : 11/04/16 at 1:59 pm Service Date, if different from initiated Date: [] Patient: Jada Ramirez 66 y/o F admitted on 11/01/16 for Debridement and Irrigation of Right Thumb Palmar . Chief Complaint: [] Principal diagnosis: Right thumb abcess, right thumb suppurative flexor tenosynovitis Interval history: patient doing well, less pain, still with some fuzziness in the right thumb tip , no fevers or chills Objective Vital signs: Vital Signs Temp Pulse Resp BP Pulse Ox 11/04/16 12:00 97.3 F L 67 18 123/75 94 11/04/16 08:00 98.1 F 69 16 113/73 93 11/04/16 04:00 98.3 F 67 16 104/62 93 11/03/16 23:21 98.1 F 71 16 101/62 95 11/03/16 19:55 98.1 F 77 16 99/66 96 11/03/16 16:00 99.1 F 76 18 105/79 97 11/03/16 15:05 91 Intake and Output 11/03/16 11/04/16 11/04/16 21:59 05:59 13:59 Intake Total 610 / 610 500 / 500 930 / 930 Output Total 700 / 700 400 / 400 900 / 900 Balance -90 / -90 100 / 100 30 / 30 Intake: IV 250 / 250 300 / 300 50 / 50 Vancomycin 1,000 mg In 250 / 250 250 / 250 Sodium Chloride 0.9% 250 ml @ 250 mls/hr IV Q12H [facility] Rx#:[id number] Rocephin 2 gm In Dextrose 50 / 50 50 / 50 5% in Water 50 ml @ 100 mls/hr IV Q24H [facility] Rx#: [id number] Oral 360 / 360 200 / 200 880 / 880 Output: Void Amount 700 / 700 400 / 400 900 / 900 Other: Meal Lunch Percent of Meal Consumed 100% Feeding Ability Assist with Tray Set Up # Voids 1 1 Weight 202 lb Intake & Output: Intake & Output 11/03/16 11/04/16 11/04/16 21:59 05:59 13:59 Intake Total 610 / 610 500 / 500 930 / 930 Output Total 700 / 700 400 / 400 900 / 900 Balance -90 / -90 100 / 100 30 / 30 Weight 202 lb Intake: IV 250 / 250 300 / 300 50 / 50 Vancomycin 1,000 mg In 250 / 250 250 / 250 Sodium Chloride 0.9% 250 ml @ 250 mls/hr IV Q12H [facility] Rx#:[id number] Rocephin 2 gm In Dextrose 50 / 50 50 / 50 5% in Water 50 ml @ 100 mls/hr IV Q24H [facility] Rx#: [id number] Oral 360 / 360 200 / 200 880 / 880 Output: Void Amount 700 / 700 400 / 400 900 / 900 Other: Meal Lunch Percent of Meal Consumed 100% Feeding Ability Assist with Tray Set Up # Voids 1 1 Incision: Yes healing, Yes draining (small amounts of serous drainage) Incision clean and dry: Yes Dressing: Yes clean, Yes dry, Yes intact, Yes splint in place Weight bearing status: full - Labs CBC & BMP: 11/04/16 04:09 11/04/16 04:09 Labs: 11/04/16 11/03/16 11/02/16 04:09 03:50 04:00 Hgb 11.2 L 10.9 L 11.9 L Hct 33.7 L 31.9 L 36.1 11/01/16 13:45 Hgb 12.4 Hct 37.8 Assessment and Plan (1) Tenosynovitis Status: Acute Priority: Medium Comment: A: S/P debridement and irrigation of right septic hand with debridement and irrigation of right thumb suppurative flexor tenosynovitis P: 1. Dressing change today 2. D/C drain today 3. D/C to home today 4. Follow up [facility] 11/09/16
--- NOTE | 2016-11-04 14:08 | Discharge Summary ---
Medical - DS: Prov Patient information: Note initiated : 11/04/16 at 2:05 pm Service Date, if different from initiated Date: [] Patient: Jada Ramirez 66 y/o F admitted on 11/01/16 for Debridement and Irrigation of Right Thumb Palmar . Chief Complaint: [] Date of admission: 11/01/16 19:41 Discharge date: 11/04/16 Primary care physician: [f_Reg Prim Care Provider] Consults: 11/01/16 19:03 Consult to Physician [CONS] Routine Comment: Post-Op Medical Management of Septic Right Hand Consulting Provider: Elan Hoang Reason For Exam: Physician to Consult Medical - DS: Meds - Discharge Medications Prescriptions: Ertapenem [INVanz] 1 gm IM Q24H #30 vial Active and Home Medications: Home Medications Amitriptyline [Elavil] 50 mg PO HS 11/01/16 [History Confirmed 11/01/16 Last Taken 10/31/16 21:00] Atorvastatin [Lipitor] 40 mg PO HS 11/01/16 [History Confirmed 11/01/16 Last Taken 10/31/16 21:00] Gabapentin [Neurontin] 300 mg PO HS 11/01/16 [History Confirmed 11/01/16 Last Taken 10/31/16 21:00] Gabapentin [Neurontin] 600 mg PO QAM 11/01/16 [History Confirmed 11/01/16 Last Taken 10/31/16 09:00] Levothyroxine [Synthroid] 125 mcg PO DAILY 11/01/16 [History Confirmed 11/01/16 Last Taken 10/31/16 09:00] Methocarbamol [Robaxin] 500 mg PO BIDP PRN 11/01/16 [History Confirmed 11/01/16 Last Taken 10/31/16 21:00] Naproxen 500 mg PO PRN PRN 11/01/16 [History Confirmed 11/01/16 Last Taken Unknown] Zolpidem [Ambien] 5 mg PO HS 11/01/16 [History Confirmed 11/01/16 Last Taken 21:00] metFORMIN [Glucophage] 500 mg PO QAMCC 11/01/16 [History Confirmed 11/01/16 Last Taken 10/31/16 09:00] Ertapenem [INVanz] 1 gm IM Q24H #30 vial 11/04/16 [Rx Last Taken Unknown] Medical - DS: Hosp Hospital course: DISCHARGE DIAGNOSIS * Right hand abscess/tenosynovitis, status post operative debridement , Postoperative day 3. discharging with advice to continue empiric IV ertapenem for 30 days. cultures negative to date ISSUES MANAGED BY HOSPITALIST SERVICE * Cellulitis/suppurative flexor tenosynovitis right hand-ertapenem for 30 days * DM type remained stable on prandial insulin/sitagliptin * anxiety disorder on as needed Benzodiazepines * Neuropathy on gabapentin/amitriptyline * Hypothyroidism -thyroxine * hyperlipidemia managed on statin BRIEF HOSPITAL COURSE Mr. Ramirez is a 66 year old male 11/01- patient admitted by orthopedics with right hand/thumb abscess/ tenosynovitis. Postop debridement. Hospitalist consult for management of antibiotics and medical issues. Patient started onvancomycin/Rocephin. 11/02-patient doing well. Continue antibiotic coverage. Gram stain cultures negative so far. Pre-existing medical condition stable on home meds. No overnight fever chills or concerns per staff 11/03- gram-positive cocci in chains along withgram-positive coccobacillary on Gram stain. Continue vancomycin and Rocephin. Await final sensitivities. Target 4 weeks IV followed by additional 2 weeks oral antibiotics. PICC line placement today for outpatient IV antibiotics. postoperative management per Dr. Morales orthopedics 11/04-Patient doing well. No overnight events. Case discussed with Dr. Maldonado who recommended discharge on IV antibiotics for additional 30 days. Patient will follow-up with orthopedic as outpatient. Continue wound recommendations/ dressing changes perorthopedics. detailed discharge instructions as below Discharge diagnosis: . - Time Spent with Patient Total time spent providing and/or coordinating discharge services: Medical - DS: Exam - Constitutional Vitals: Vital Signs Temp Pulse Resp BP Pulse Ox 11/04/16 12:00 97.3 F L 67 18 123/75 94 11/04/16 08:00 98.1 F 69 16 113/73 93 11/04/16 04:00 98.3 F 67 16 104/62 93 11/03/16 23:21 98.1 F 71 16 101/62 95 11/03/16 19:55 98.1 F 77 16 99/66 96 11/03/16 16:00 99.1 F 76 18 105/79 97 11/03/16 15:05 91 Intake and Output 11/04/16 11/04/16 11/04/16 05:59 13:59 21:59 Intake Total 500 / 500 930 / 930 Output Total 400 / 400 900 / 900 Balance 100 / 100 Intake: IV 300 / 300 50 / 50 Vancomycin 1,000 mg In 250 / 250 Sodium Chloride 0.9% 250 ml @ 250 mls/hr IV Q12H [facility] Rx#:[id number] Rocephin 2 gm In Dextrose 50 / 50 50 / 50 5% in Water 50 ml @ 100 mls/hr IV Q24H [facility] Rx#: [id number] Oral 200 / 200 880 / 880 Output: Void Amount 400 / 400 900 / 900 Other: Meal Lunch Percent of Meal Consumed 100% Feeding Ability Assist with Tray Set Up # Voids 1 Medical - DS: Data Labs on day of discharge: Labs from last 24 hours 11/04/16 11/04/16 11/04/16 04:09 04:09 04:09 WBC RBC Hgb Hct MCV MCH MCHC RDW Plt Count MPV Total Counted Seg Neutrophils % Band Neutrophils % Lymphocytes % Monocytes % (Manual) Eosinophils % (Manual) Platelet Estimate RBC Morphology ESR 41 H Sodium 137 Potassium 4.4 Chloride 99 Carbon Dioxide 25 Anion Gap 13.0 BUN 16 Creatinine 0.7 GFR Calculation 92 Glucose 110 H Uric Acid 4.9 Calcium 8.7 Phosphorus 5.0 H Magnesium 2.0 Total Bilirubin 0.2 Direct Bilirubin < 0.2 GGT 40 H AST 22 ALT 26 Alkaline Phosphatase 82 Lactate Dehydrogenase 145 C-Reactive Protein 2.9 H Total Protein 6.1 Albumin 3.4 Globulin 2.7 Albumin/Globulin Ratio 1.3 Triglycerides 75 11/04/16 04:09 WBC 9.3 RBC 3.65 L Hgb 11.2 L Hct 33.7 L MCV 92.2 MCH 30.7 MCHC 33.3 RDW 13.7 Plt Count 360 MPV 8.1 Total Counted 100 Seg Neutrophils % 47 Band Neutrophils % Not Reportable Lymphocytes % 42 Monocytes % (Manual) 8 Eosinophils % (Manual) 3 Platelet Estimate Normal RBC Morphology Normal ESR Sodium Potassium Chloride Carbon Dioxide Anion Gap BUN Creatinine GFR Calculation Glucose Uric Acid Calcium Phosphorus Magnesium Total Bilirubin Direct Bilirubin GGT AST ALT Alkaline Phosphatase Lactate Dehydrogenase C-Reactive Protein Total Protein Albumin Globulin Albumin/Globulin Ratio Triglycerides Preliminary micro results at discharge 11/01/16 19:37 Wound Culture - Preliminary Hand - Right 11/01/16 19:37 Wound Culture - Preliminary Abscess - Right Medical - DS: A/P - Patient/Caregiver Discharge Instructions Activity: increase activity as tolerated Diet: Consistent Carbohydrate Additional Instructions: Keep dressing clean, dry and intact until seen in by physician. Follow-up PCP in 5 days F/u orthopedics as scheduled by orthopedics along with post op care. I recommend SNF physician to check CBC BMP as a posthospital follow-up in 1 week. Antibiotics for 30 days IV ertapenem Return to ER if worsening and swelling and pain discharge fever chills shortness of breath, diarrhea Review risk and side effect profile of medications including antibiotics. Side effect may include mild to severe reaction including rash, diarrhea, cdiff and even which can be prevented by close follow-up with PCP and monitoring for side effects Continue diet and activity as advised Discussed importance of medication adherence Please review medication list with patient prior to discharge Please schedule follow-up with PCP/Providers prior to discharge and provide printouts Portions of this chart may have been created with [employer] voice recognition software. Occasional wrong-word or ?sound-like? substitutions may have occurred due to the inherent limitations of voice recognition software. Please read the chart carefully and recognize, using context, where the substitutions have occurred. CC- PCP Prescriptions: Ertapenem [INVanz] 1 gm IM Q24H #30 vial - Problem Maintenance (1) Abscess of right hand excluding fingers and thumb Status: Acute - Follow up Plan Follow up with: Carl Resendez MD [Physician] - 11/05/16 1:00 pm Disposition: Home, Self-Care Prognosis: Fair Rehab Potential: Fair I certify that the patient requires SNF services: No Overall status at discharge: patient is progressing back to baseline
== END 2016-11-04 18:10 | disposition home or self-care (01) | DRG 857 ==
LOC: SUR 13:21 → EDSTATUS 16:00 → MEDSUR 19:20
PROVIDERS: ADMIT Orthopaedic Surgery Hand Surgery; ATTEND Internal Medicine